=== PATIENT | female | born 1960 | race Caucasian/White ===

== ENCOUNTER → 2017-11-17 | Outpatient (CLI) | payer BC ==
[~2017-11-17] MED LIST: FISHOIL PO; IMT100 PO; MULT-506 PO
--- NOTE | 2017-11-17 16:52 | DIAGNOSTIC IMAGING REPORT ---
MRI OF THE RIGHT KNEE WITHOUT CONTRAST CLINICAL HISTORY: Right knee pain. Recent twisting injury. COMPARISON STUDY: Right knee radiographs November 10, 2017. TECHNIQUE: Utilizing a 1.5 Luiza magnet and dedicated coil, multiplanar, multiecho imaging of the right knee was performed without intravenous or intraarticular contrast. FINDINGS: Alignment of the right knee is anatomic. Extensor mechanism is intact. There is no joint effusion. There is severe chondrosis of the patellar cartilage as well as the cochlear cartilage. There is lateral patellar tilt. Osteophytosis is noted. Subchondral signal abnormality is noted due to the severe chondrosis within the patellofemoral compartment. There is also severe chondrosis of the medial femoral condyle. There is mild chondrosis within the lateral compartment. The cruciate and collateral ligaments are intact. No medial meniscal tear is identified. There is a complex tear of the anterior horn of the lateral meniscus. No suspicious marrow replacement is present. No mass or fluid collection is shown adjacent to the right knee. IMPRESSION: 1. Severe patellofemoral chondromalacia. 2. 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 Mild lateral compartment chondrosis. 3. Intact cruciate and collateral ligaments. 4. Complex tear of the anterior horn of the lateral meniscus. Electronically signed by: Nick Wu M.D. 11/17/2017 4:50 PM Dictated Date/Time: 11/17/2017 4:40 PM
== END | disposition home or self-care (01) ==
LOC: C.MRIBC 15:46
PROVIDERS: ATTEND Orthopaedic Surgery
DX: M22.41 Chondromalacia patellae, right knee (principal); S83.281A Other tear of lateral meniscus, current injury, right knee, initial encounter; X58.XXXA Exposure to other specified factors, initial encounter